=== PATIENT | male | born 1965 | race Two or more races ===

== ENCOUNTER 2019-06-25 12:08 | Emergency (ER) | payer SELFPAY ==
[~2019-06-25] VITALS: Ht 185.4 cm; Wt 108.9 kg
--- NOTE | 2019-06-25 12:30 | NUR ---
ED Nurse Note: pt presents to ED via EMS arrival for HTN. pt reports being at work when it happened and that it was "190 over soemthing" which is abnormal for him. Pt works at a [employer] and denies doing anything out of the ordinary today. pt states that he felt dizzy and a little light headed but denies any SOB, N/V. pt has HTN that he takes meds for daily but unsure what he takes. pt's current BP in ED is 163/95 HR: 96, SpO2: 96%, RR: 20 Addendum: 06/25/19 at 1255 by LATANYAE pt reports that he took his BP meds this AM today [employer] at 0700
[2019-06-25 12:51] VITALS: BP 200/105
[2019-06-25 13:23] VITALS: BP 159/90
--- NOTE | 2019-06-25 13:23 | NUR ---
ER DISCHARGE NOTE: Patient is cleared to be discharged per ERMD, pt is aox4, on room air, with stable vital signs. pt was given dc and prescription instructions, pt was able to verbalize understanding, pt id band . pt is able to ambulate with steady gait. pt took all belongings. PT. STATED HE TOOK MEDICATION BEFORE GOING TO ER.
--- NOTE | 2019-06-26 15:08 | Emergency Room Report ---
History of Present Illness General Chief Complaint: Hypertension Source: Patient Present Illness HPI 53-year-old male presents ED for evaluation. Patient here for elevated blood pressure. States that in the morning his blood pressure was very high. Systolic over 200. Had just taken his blood pressure medication this morning. Was feeling dizzy. States on arrival he is feeling better. States BP appears to be improving. No longer feels dizzy. Denies headache. Denies chest pain. States he is normally compliant with his BP meds. Does not know the name of it but has it with him. No other aggravating relieving factors. Denies any other associated symptoms Allergies: Coded Allergies: No Known Allergies (Unverified , 06/25/19) Patient History Past Medical History: HTN Past Surgical History: none Pertinent Family History: none Social History: Denies: smoking, alcohol use, drug use Immunizations: UTD Reviewed Nursing Documentation: PMH: Agreed; PSxH: Agreed Nursing Documentation-PMH Past Medical History: No History, Except For Hx Hypertension: Yes Review of Systems All Other Systems: negative except mentioned in HPI Physical Exam Vital Signs Date Time Temp Pulse Resp B/P (MAP) Pulse Ox O2 Delivery O2 Flow Rate FiO2 06/25/19 12:27 98.2 104 19 200/105 (136) 95 Room Air Sp02 EP Interpretation: reviewed, normal General Appearance: no apparent distress, alert, GCS 15, non-toxic Head: normocephalic, atraumatic Eyes: bilateral eye normal inspection, bilateral eye PERRL ENT: hearing grossly normal, normal pharynx, no angioedema, normal voice Neck: full range of motion, supple/symm/no masses Respiratory: chest non-tender, lungs clear, normal breath sounds, speaking full sentences Cardiovascular #1: regular rate, rhythm, no edema Cardiovascular #2: 2+ carotid (R), 2+ carotid (L), 2+ radial (R), 2+ radial (L) , 2+ dorsalis pedis (R), 2+ dorsalis pedis (L) Gastrointestinal: normal bowel sounds, non tender, soft, non-distended, no guarding, no rebound Rectal: deferred Genitourinary: normal inspection, no CVA tenderness Musculoskeletal: back normal, gait/station normal, normal range of motion, non- tender Neurologic: alert, oriented x3, responsive, motor strength/tone normal, sensory intact, speech normal Psychiatric: judgement/insight normal, memory normal, mood/affect normal, no suicidal/homicidal ideation Reflexes: 3+ bicep (R), 3+ bicep (L), 3+ tricep (R), 3+ tricep (L), 3+ knee (R) , 3+ knee (L) Lymphatic: no adenopathy Medical Decision Making Diagnostic Impression: Primary Impression: Hypertension Qualified Codes: I10 - Essential (primary) hypertension ER Course Hospital Course 53 yo M presents with dizziness earlier today, BP high. denies symtpmos at this time Differential diagnoses include: hypertensive urgency, hypertensive emergency, arrythmia, IA/ACS Clinical course Patient placed on stretcher. After initial history, exam reveals middle-aged obese male in no acute distress. No focal neurological deficits. No nuchal rigidity. Remainder of exam unremarkable. BP in ED 159/90. states he feels overall better. Symptoms at this time. Shows me his medication which he cannot identify. Using pill finder we confirmed it is amlodipine 10 mg. I encourage patient to remember the name. Encouraged him to continue taking his medications as directed. Safe for discharge for close outpatient follow-up. States he has a PMD I. I feel this is a highly complex case requiring extensive working including EKG/Rhythm strip, Xray/CT/US, Blood/urine lab work, repeat exams while in ED, and administration of strong opiates/narcotics for pain control, admission to hospital or close patient follow up. Diagnosis - hypertension Stable and discharged to home. Instructed to followup with PMD. Return to ED if symptoms recur or worsen Last Vital Signs Date Time Temp Pulse Resp B/P (MAP) Pulse Ox O2 Delivery O2 Flow Rate FiO2 06/25/19 13:23 98.2 88 18 159/90 99 Room Air Status: improved Disposition: HOME, SELF-CARE Condition: Stable Scripts Unable to Obtain Active Prescriptions or Reported Meds Referrals: NOT CHOSEN IPA/,REFERRING (PCP) [facility] Departure Forms: Return to Work Return to Work Date: Jun 26, 2019 Work Restrictions: None Robles Minaya MD Jun 26, 2019 15:08
== END 2019-06-25 13:23 | disposition home or self-care (01) ==
LOC: EMR 13:10
DX: I10 Essential (primary) hypertension (principal)
CPT/HCPCS: 99282